=== PATIENT | male | born 1965 | race Caucasian/White ===

== ENCOUNTER 2024-08-01 20:54 | Observation (INO) | payer OTHER ==
--- NOTE | 2024-08-01 21:18 | ED ---
Recheck HPI - General Chief Complaint: Extremity Problem,Nontraumatic Stated Complaint: left leg pain Time Seen by Provider: 08/01/24 21:11 Source: patient, RN notes reviewed, old records reviewed Mode of arrival: EMS Limitations: no limitations - History of Present Illness Initial Comments: This is a 59-year-old male who is excepted in transfer from outside facility for new onset DVT. Patient will be admitted for anticoagulation once patient is transferred for anticoagulation and treatment of DVT. He has no chest pain or shortness of breath MD Complaint: other (DVT needing heparin) -: days(s) Returns Today for: persistent/worsening pain related to initial visit Symptoms Since Prior Visit: worsening pain Context: called for abnormal lab result - Related Data Previous Rx's Medication Instructions Recorded Apixaban [Eliquis Starter Pack 5 - 10 mg PO DIRECTED 30 Days 08/02/24 (for VTE)] #1 each Allergies Allergy/AdvReac Type Severity Reaction Status Date / Time No Known Allergies Allergy Verified 08/02/24 08:40 Review of Systems ROS Statement: Those systems with pertinent positive or pertinent negative responses have been documented in the HPI. ROS Other: All systems not noted in ROS Statement are negative. Past Medical History History of Any Multi-Drug Resistant Organisms: None Reported Additional Past Surgical History / Comment(s): wisdanica teamandeep Past Psychological History: No Psychological Hx Reported Smoking Status: Current every day smoker Past Alcohol Use History: Daily, Heavy Past Drug Use History: Marijuana General Exam Limitations: no limitations General appearance: alert, in no apparent distress Head exam: Present: atraumatic, normocephalic, normal inspection Eye exam: Present: normal appearance, PERRL, EOMI. Absent: scleral icterus, conjunctival injection, periorbital swelling ENT exam: Present: normal exam, mucous membranes moist Neck exam: Present: normal inspection. Absent: tenderness, meningismus, lymphadenopathy Respiratory exam: Present: normal lung sounds bilaterally. Absent: respiratory distress, wheezes, rales, rhonchi, stridor Cardiovascular Exam: Present: regular rate, normal rhythm, normal heart sounds. Absent: systolic murmur, diastolic murmur, rubs, gallop, clicks GI/Abdominal exam: Present: soft, normal bowel sounds. Absent: distended, tenderness, guarding, rebound, rigid Extremities exam: Present: normal inspection, tenderness, normal capillary refill, pedal edema, joint swelling, other (Lower extremity with redness pain swelling). Absent: calf tenderness Back exam: Present: normal inspection Neurological exam: Present: alert, oriented X3, CN II-XII intact Psychiatric exam: Present: normal affect, normal mood Skin exam: Present: warm, dry, intact, normal color. Absent: rash Course Vital Signs 08/01/24 08/01/24 20:58 23:19 Temperature 98 F 98.2 F Pulse Rate 79 74 Respiratory 17 17 Rate Blood Pressure 120/80 132/77 O2 Sat by Pulse 99 97 Oximetry - Reevaluation(s) Reevaluation #1: 08/01/24 22:35 medical record is reviewed Since transfer paperwork is reviewed normal lab testing, positive EtOH, ultrasound positive for DVT left lower extremity, CTA negative for PE Reevaluation #2: 08/01/24 22:36 Patient symptoms relatively unchanged still with leg pain Reevaluation #3: 08/01/24 22:36 Patient informed of results questions answered Reevaluation #4: Was pt. sent in by a medical professional or institution (, PA, CERTIFIED VEHICLE FIRE INVESTIGATOR, urgent care, hospital, or care home...) When possible be specific @ -no Did you speak to anyone other than the patient for history (EMS, parent, family, police, friend...)? What history was obtained from this source @ -no Did you review nursing and triage notes (agree or disagree)? Why? @ -agree Are old charts reviewed (outside hosp., previous admission, EMS record, old EKG, old radiological studies, urgent care reports/EKG's, care home records)? Report findings @ -yes Differential Diagnosis (chest pain, altered mental status, abdominal pain women, abdominal pain men, vaginal bleeding, weakness, fever, dyspnea, syncope, heada el, dizziness, GI bleed, back pain, seizure, CVA, palpatations, mental health, musculoskeletal)? @ -prior EKG interpreted by me (3pts min.). @ -no X-rays interpreted by me (1pt min.). @ -no CT interpreted by me (1pt min.). @ -no U/S interpreted by me (1pt. min.). @ -no What testing was considered but not performed or refused? (CT, X-rays, U/S, labs)? Why? @ -none What meds were considered but not given or refused? Why? @ -none Did you discuss the management of the patient with other professionals (professionals i.e. , PA, CERTIFIED VEHICLE FIRE INVESTIGATOR, lab, RT, psych nurse, director social welfare, dye range feeder, teacher, education officer, complex case manager)? Give summary @ -no Was smoking cessation discussed for >3mins.? @ -no Was critical care preformed (if so, how long)? @ -no Were there social determinants of health that impacted care today? How? (Homelessness, low income, unemployed, alcoholism, drug addiction, transp ortation, low edu. Level, literacy, decrease access to med. care, retirement, rehab)? @ -none Was there de-escalation of care discussed even if they declined (Discuss DNR or withdrawal of care, Hospice)? DNR status @ -no What co-morbidities impacted this encounter? (DM, HTN, Smoking, COPD, CAD, Cancer, CVA, ARF, Chemo, Hep., AIDS, mental health diagnosis, sleep apnea, morbid obesity)? @ -none Was patient admitted / discharged? Hospital course, mention meds given and route, prescriptions, significant lab abnormalities, going to OR and other pertinent info. @ - 59 male to the ER for evaluation, patient accepted in transfer from outside facility for DVT new left lower extremity edema swelling and pain especially when walking. Patient transferred here for DVT treatment . Admitted Undiagnosed new problem with uncertain prognosis? @ -no Drug Therapy requiring intensive monitoring for toxicity (Heparin, Nitro, Insulin, Cardizem)? @ -no Were any procedures done? @ -no Diagnosis/symptom? @ -Acute DVT Acute, or Chronic, or Acute on Chronic? @ -Acute Uncomplicated (without systemic symptoms) or Complicated (systemic symptoms)? @ -Complicated Side effects of treatment? @ -no Exacerbation, Progression, or Severe Exacerbation? @ -exacerbation Poses a threat to life or bodily function? How? (Chest pain, USA, IA, pneumonia, PE, COPD, DKA, ARF, appy, cholecystitis, CVA, Diverticulitis, Homicidal, Suicidal, threat to staff... and all critical care pts) @ -yes acute DVT PE - Consultations Consultation #1: Spoke with [facility] who agrees to admit this patient Medical Decision Making - Medical Decision Making 59 male to the ER for evaluation, patient accepted in transfer from outside facility for DVT new left lower extremity edema swelling and pain especially when walking. Patient transferred here for DVT treatment - Lab Data Result diagrams: 08/02/24 04:48 08/02/24 04:48 - Radiology Data Radiology results: report reviewed (UltraSound left lower extremity positive DVT, CT angio chest negative PE) Disposition Clinical Impression: Deep vein thrombosis (DVT) of lower extremity, Left leg DVT, Superficial thrombophlebitis of both legs Disposition: ADMITTED IP TO THIS HOSP Condition: Good Is patient prescribed a controlled substance at d/c from ED?: No Time of Disposition: 22:30
[2024-08-01] MEDS ORDERED: HEPARIN SODIUM 1,000 UN/ML (10ML VL) IV PRN (22:10)
[2024-08-01] MEDS: HEPARIN SOD,PORK IN 0.45% NACL 25,000 UNIT in 0.45% NACL 1 250ML.BAG IV SCH (22:21)
[2024-08-01] MEDS ORDERED: MORPHINE SULFATE 4 MG/ML SYRINGE IV PRN (22:32)
[2024-08-01] MEDS ORDERED: ONDANSETRON 4 MG/2 ML VIAL IVP PRN (22:32)
[2024-08-01] MEDS ORDERED: NALOXONE 0.4 MG/ML 1 ML VIAL IV PRN (22:32)
[2024-08-02 04:59] LABS: Basophils # (A) 0.1 k/uL (0-0.2); Basophils % (A) 1 %; Eosinophils # (A) 0.2 k/uL (0-0.7); Eosinophils % (A) 3 %; HCT 44.7 % (39.0-53.0); HGB 14.1 gm/dL (13.0-17.5); Lymphocytes % (A) 30 %; MCH 30.6 pg (25.0-35.0); MCHC 31.6 g/dL (31.0-37.0); Mean Platelet Volume 7.6; Monocytes # (A) 0.6 k/uL (0-1.0); Monocytes % (A) 9 %; Neutrophils # (A) 3.8 k/uL (1.3-7.7); Neutrophils % (A) 55 %; Platelet Count 246 k/uL (150-450); RBC 4.61 m/uL (4.30-5.90); RDW 13.5 % (11.5-15.5); WBC 6.9 k/uL (3.8-10.6)
[2024-08-02 06:52] LABS: ALT 13 U/L (4-49); AST 26 U/L (17-59); African American GFR (CKD) >90 (>60 ml/min/1.73 sqM); Albumin 3.5 g/dL (3.5-5.0); Alkaline Phosphatase 62 U/L (38-126); Anion Gap 9 mmol/L; Blood Urea Nitrogen 8 mg/dL (9-20); Calcium 8.5 mg/dL (8.4-10.2); Carbon Dioxide 25 mmol/L (22-30); Chloride 101 mmol/L (98-107); Glucose 98 mg/dL (74-99); Non-African American GFR(CKD) >90 (>60 ml/min/1.73 sqM); Phosphorus 3.8 mg/dL (2.5-4.5); Potassium 4.1 mmol/L (3.5-5.1); Sodium 135 mmol/L (137-145); Total Bilirubin 0.9 mg/dL (0.2-1.3)
[2024-08-02 08:00] VITALS: RESP 18
[2024-08-02] MEDS: SODIUM CHLORIDE 0.9% 1,000 ML IV SCH (09:04)
[2024-08-02] MEDS ORDERED: Apixaban Initiation Dose--VTE 5 MG TAB PO SCH (11:00)
[2024-08-02] MEDS: FAMOTIDINE 20 MG TAB PO SCH (11:43)
--- NOTE | 2024-08-02 14:05 | P.GSCN ---
History of Present Illness Consult date: 08/02/24 Reason for Consult: DVT Requesting physician: Terrance Rodríguez History of present illness: This a pleasant 59-year-old male who was transferred here from outside facility for concerns of left lower extremity DVT. Patient states he started noticing swelling at least 2 months ago of the left lower extremity however he had been off work since before the holidays and just went back to work on Wednesday. 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 He states he had looked online and schedule an appointment with the vein center and [place]. He was seen there yesterday by Dr. Ace Dunn for an ultrasound of the lower extremities with diagnosis of bilateral leg pain. Report states evidence of DVT of the left lower extremity with left common femoral, femoral popliteal and posterior tibial veins not being compressible and thrombus formation noted. Evidence of superficial vein thrombosis of bilateral lower extremities. Patient had then gone to a [facility] on [address] where he was evaluated and recommendation was for transfer to hospital for further evaluation. Patient chose to come to [facility]. Vascular surgery was consulted secondary to DVT. Patient denies any injury to his left leg, no recent surgery, travel and does state secondary to him being off of work and being winter he has been more sedentary. Patient denies tobacco use but is a marijuana smoker. Denies any previous history of known blood clots or family history of clotting disorder. He states left lower extremity swelling has improved. Denies any swelling up in his thigh. No pain at this time. He denies any shortness of breath or chest pain. He has full range of motion. Patient is currently on IV heparin drip. Review of Systems A 14 point review systems was completed all pertinent positives and negatives as stated in the HPI. Past Medical History Past Medical History: No Reported History History of Any Multi-Drug Resistant Organisms: None Reported Additional Past Surgical History / Comment(s): zackary durham Past Anesthesia/Blood Transfusion Reactions: No Reported Reaction Past Psychological History: No Psychological Hx Reported Smoking Status: Current every day smoker Past Alcohol Use History: Daily, Heavy Additional Past Alcohol Use History / Comment(s): 8 beers a day. states he has never smoked cigarettes, just marijuana Past Drug Use History: Marijuana Medications and Allergies Home Medications Medication Instructions Recorded Confirmed Type No Known Home Medications 08/02/24 08/02/24 History Allergies Allergy/AdvReac Type Severity Reaction Status Date / Time No Known Allergies Allergy Verified 08/02/24 08:40 Surgical - Exam Vital Signs Temp Pulse Resp BP Pulse Ox 98 F 79 17 120/80 99 08/01/24 20:58 08/01/24 20:58 08/01/24 20:58 08/01/24 20:58 08/01/24 20:58 General appearance: The patient is alert, oriented, appears in no acute distress. HET: Head is normocephalic and atraumatic. Pupils are equal and reactive. Neck: Supple. Heart: Regular. Lungs: Equal expansion, normal respiratory effort. Abdomen: Soft, nontender, nondistended. Extremities: Normal skin color and turgor. Left lower extremity +2 pitting edema from the knee down through the foot. Palpable DP pulse. Neurological: No focal deficits. Strength and sensation are grossly intact. Results - Labs 08/02/24 04:48 08/02/24 04:48 Abnormal Lab Results - Last 24 Hours (Table) 08/02/24 08/02/24 Range/Units 04:48 04:48 APTT 65.4 H (22.0-30.0) sec Sodium 135 L (137-145) mmol/L BUN 8 L (9-20) mg/dL Total Protein 6.0 L (6.3-8.2) g/dL Diabetes panel 08/02/24 Range/Units 04:48 Sodium 135 L (137-145) mmol/L Potassium 4.1 (3.5-5.1) mmol/L Chloride 101 (98-107) mmol/L Carbon Dioxide 25 (22-30) mmol/L BUN 8 L (9-20) mg/dL Creatinine 0.68 (0.66-1.25) mg/dL Glucose 98 (74-99) mg/dL Calcium 8.5 (8.4-10.2) mg/dL AST 26 (17-59) U/L ALT 13 (4-49) U/L Alkaline Phosphatase 62 (38-126) U/L Total Protein 6.0 L (6.3-8.2) g/dL Albumin 3.5 (3.5-5.0) g/dL Calcium panel 08/02/24 Range/Units 04:48 Calcium 8.5 (8.4-10.2) mg/dL Phosphorus 3.8 (2.5-4.5) mg/dL Albumin 3.5 (3.5-5.0) g/dL Pituitary panel 08/02/24 Range/Units 04:48 Sodium 135 L (137-145) mmol/L Potassium 4.1 (3.5-5.1) mmol/L Chloride 101 (98-107) mmol/L Carbon Dioxide 25 (22-30) mmol/L BUN 8 L (9-20) mg/dL Creatinine 0.68 (0.66-1.25) mg/dL Glucose 98 (74-99) mg/dL Calcium 8.5 (8.4-10.2) mg/dL Adrenal panel 08/02/24 Range/Units 04:48 Sodium 135 L (137-145) mmol/L Potassium 4.1 (3.5-5.1) mmol/L Chloride 101 (98-107) mmol/L Carbon Dioxide 25 (22-30) mmol/L BUN 8 L (9-20) mg/dL Creatinine 0.68 (0.66-1.25) mg/dL Glucose 98 (74-99) mg/dL Calcium 8.5 (8.4-10.2) mg/dL Total Bilirubin 0.9 (0.2-1.3) mg/dL AST 26 (17-59) U/L ALT 13 (4-49) U/L Alkaline Phosphatase 62 (38-126) U/L Total Protein 6.0 L (6.3-8.2) g/dL Albumin 3.5 (3.5-5.0) g/dL Assessment and Plan Assessment: 1. Left lower extremity extensive DVT Plan: 1. Apply GIOVANA hose to left lower extremity 2. Elevate lower extremities 3. May transition to oral anticoagulation of your choice 4. Patient is cleared from vascular surgery for discharge. Follow-up outpatient in 1 to 2 weeks. Thank you for this consultation. The impression and plan of care has been dictated as directed. Dr. Jian Gonsalves I performed a history and examination of this patient, discussed the same with the dictator. I agree with the dictator's note ,documented as a scribe. Any additional findings or plans will be noted.
[2024-08-02 14:18] VITALS: BP 133/75; PULSE 73; TEMP 98.3
--- NOTE | 2024-08-02 14:36 | P.HPIM ---
History of Present Illness H&P Date: 08/02/24 This is a 59-year-old male medical history significant for marijuana use and chronic alcoholism drinks 6-8 beers per day per the patient he has no other significant medical history does not follow with a family doctor. He just got his health insurance reinstated states that he has been off work for the last 3 to 4 months. He does factory like work. He does state that in April he got a bad upper respiratory infection and notices swelling in his left leg shortly after. He has had this left leg swelling for the last 3 to 4 months. Patient went to an outpatient vein clinic in [place] with Dr. Ace Dunn where he had bilateral Dopplers completed which reveals an acute DVT of left lower EXTR with left common femoral femoral popliteal and posterior tibial veins not being compressible and thrombus for patient noted. Evidence of superficial vein thrombosis of bilateral lower use. Patient states that the vein clinic told him to follow-up at the hospital. Patient presented to [facility] at [address] and they recommended transfer to a larger hospital system and patient states that he wanted to come to [facility] as it is close to his family. Patient has not had any recent travel and no noted history of DVTs in the past. Patient has significant lower extremity edema of the left leg does state that it has significantly improved since he was started on IV heparin yesterday evening. He is not reporting any shortness of breath or chest pain he is saturating 95% on r oom air oxygen. He was admitted to the hospital for the acute DVT we did ask vascular surgery to consult on this patient. Remains on IV heparin. REVIEW OF SYSTEMS: CONSTITUTIONAL: No fever, no malaise, no fatigue. HEENT: No recent visual problems or hearing problems. Denied any sore throat. CARDIOVASCULAR: No chest pain, orthopnea, PND, no palpitations, no syncope. PULMONARY: No shortness of breath, no cough, no hemoptysis. GASTROINTESTINAL: No diarrhea, no nausea, no vomiting, no abdominal pain. NEUROLOGICAL: No headaches, no weakness, no numbness. HEMATOLOGICAL: Denies any bleeding or petechiae. GENITOURINARY: Denies any burning micturition, frequency, or urgency. MUSCULOSKELETAL/RHEUMATOLOGICAL: Reports left lower extremity leg swelling and pain ENDOCRINE: Denies any polyuria or polydipsia. The rest of the 14-point review of systems is negative. PHYSICAL EXAMINATION: GENERAL: The patient is alert and oriented x3, not in any acute distress. Well developed, well nourished. HEENT: Pupils are round and equally reacting to light. EOMI. No scleral icterus. No conjunctival pallor. Normocephalic, atraumatic. No pharyngeal erythema. No thyromegaly. CARDIOVASCULAR: S1 and S2 present. No murmurs, rubs, or gallops. PULMONARY: Chest is clear to auscultation, no wheezing or crackles. ABDOMEN: Soft, nontender, nondistended, normoactive bowel sounds. No palpable organomegaly. MUSCULOSKELETAL: No joint swelling or deformity. EXTREMITIES: No cyanosis, clubbing, +2-3 pitting edema LLE NEUROLOGICAL: Gross neurological examination did not reveal any focal deficits. SKIN: No rashes. Assessment and Plan Acute DVT left lower extremity and bilateral superficial DVT Respiratory illness in April Chronic alcoholism Marijuana use Obesity GI prophylaxis DVT prophylaxis IV heparin Full Code Plan Continue IV heparin Vascular surgery consult Recommend compression stockings and elevate the lower extremity while sitting If vascular surgery clears patient can be discharged home on oral anticoagulation Will ramires check eliquis The impression and plan of care has been dictated by Cristina Mireles Nurse Practitioner as directed. Dr. Anne MD I have performed a history and physical examination and medical decision making of this patient, discussed the same with the dictator, and agree with the dictators assessment and plan as written, documented as a scribe. Based on total visit time, I have performed more than 50% of this visit. Past Medical History Past Medical History: No Reported History History of Any Multi-Drug Resistant Organisms: None Reported Additional Past Surgical History / Comment(s): wisdom teath Past Anesthesia/Blood Transfusion Reactions: No Reported Reaction Past Psychological History: No Psychological Hx Reported Smoking Status: Current every day smoker Past Alcohol Use History: Daily, Heavy Additional Past Alcohol Use History / Comment(s): 8 beers a day. states he has never smoked cigarettes, just marijuana Past Drug Use History: Marijuana Medications and Allergies Home Medications Medication Instructions Recorded Confirmed Type No Known Home Medications 08/02/24 08/02/24 History Allergies Allergy/AdvReac Type Severity Reaction Status Date / Time No Known Allergies Allergy Verified 08/02/24 08:40 Physical Exam Vitals: Vital Signs Temp Pulse Pulse Resp BP BP Pulse Ox 08/02/24 07:10 97.5 F L 60 18 116/70 99 08/02/24 02:00 98.0 F 89 17 124/69 98 08/02/24 00:00 98.1 F 72 17 134/77 97 08/01/24 23:19 98.2 F 74 17 132/77 97 08/01/24 20:58 98 F 79 17 120/80 99 Intake and Output 08/01/24 08/02/24 08/02/24 22:59 06:59 14:59 Intake Total 137.087 236 Output Total 550 Balance -412.913 236 Intake: Intake, IV Titration 137.087 Amount Heparin Sod,Pork in 0.45% 137.087 NaCl 25,000 unit In 0.45 % NaCl 1 250ml.bag @ 18 UNITS/KG/HR 18.779 mls/hr IV .[id number] [facility] Rx#: [id number] Oral 236 Output: Urine 550 Other: # Voids 2 Weight 104.326 kg 104.326 kg Results CBC & Chem 7: 08/02/24 04:48 08/02/24 04:48 Labs: Abnormal Lab Results - Last 24 Hours (Table) 08/02/24 08/02/24 Range/Units 04:48 04:48 APTT 65.4 H (22.0-30.0) sec Sodium 135 L (137-145) mmol/L BUN 8 L (9-20) mg/dL Total Protein 6.0 L (6.3-8.2) g/dL Thrombosis Risk Factor Assmnt - Choose All That Apply Any of the Below Risk Factors Present?: Yes Each Factor Represents 1 point: Age 41-60 years, Obesity (BMI >25), Swollen legs (current) Other Risk Factors: Yes Other congenital or acquired thrombophilia - If yes, enter type in comment: Yes Thrombosis Risk Factor Assessment Total Risk Factor Score: 3 Thrombosis Risk Factor Assessment Level: Moderate Risk Assessment and Plan Time with Patient: Greater than 30
--- NOTE | 2024-08-03 22:37 | P.DS ---
Providers Date of admission: 08/01/24 22:32 Attending physician: Tray Crawford Consults: 08/02/24 13:00 Consult Physician Urgent Consulting Provider: Jose Padron Consult Reason/Comments: dvt Do you want consulting provider notified?: Yes Primary care physician: Stated None Hospital Course: Final Diagnosis Acute DVT left lower extremity and bilateral superficial DVT Respiratory illness in April Chronic alcoholism Marijuana use Obesity Discharge Disposition Stable for discharge home. He has been started on eliquis for the acute DVT. Patient given a one month supply. He needs to see vascular in the office in 1 week. He needs to establish with a PCP on discharge. Hospital Course This is a 59-year-old male medical history significant for marijuana use and chronic alcoholism drinks 6-8 beers per day per the patient he has no other significant medical history does not follow with a family doctor. He just got his health insurance reinstated states that he has been off work for the last 3 to 4 months. He does factory like work. He does state that in April he got a bad upper respiratory infection and notices swelling in his left leg shortly after. He has had this left leg swelling for the last 3 to 4 months. Patient went to an outpatient vein clinic in [place] with Dr. Ace Dunn where he had bilateral Dopplers completed which reveals an acute DVT of left lower EXTR with left common femoral femoral popliteal and posterior tibial veins not being compressible and thrombus for patient noted. Evidence of superficial vein thrombosis of bilateral lower use. Patient states that the vein clinic told him to follow-up at the hospital. Patient presented to [facility] at [address] and they recommended transfer to a larger hospital system and patient states that he wanted to come to [facility] as it is close to his family. Patient has not had any recent travel and no noted history of DVTs in the past. Patient has significant lower extremity edema of the left leg does state that it has significantly improved since he was started on IV heparin yesterday evening. He is not reporting any shortness of breath or chest pain he is saturating 95% on room air oxygen. He was admitted to the hospital for the acute DVT and vascular surgery consultation. Vascular recommending GIOVANA [place] bilaterally. Patient has been transitioned to oral anticoagulation. Patient to follow up with vascular surgery in the office in 1 to 2 weeks. His leg swelling is markedly improved since admission. Please see medication reconciliation for a list of current medications. Thank you for allowing us to participate in the care of this patient. The impression and plan of care has been dictated by Cristina Mireles, Nurse Practitioner as directed. Dr. Anne MD I have performed a history and physical examination and medical decision making of this patient, discussed the same with the dictator, and agree with the dictators assessment and plan as written, documented as a scribe. Based on total visit time, I have performed more than 50% of this visit. Patient Condition at Discharge: Good Plan - Discharge Summary New Discharge Prescriptions: New Apixaban [Eliquis Starter Pack (for VTE)] 5 - 10 mg PO DIRECTED 30 Days #1 each Discharge Medication List Apixaban [Eliquis Starter Pack (for VTE)] 5 - 10 mg PO DIRECTED 30 Days #1 each 08/02/24 [Rx] Follow up Appointment(s)/Referral(s): Jennifer Zafar, [STAFF PHYSICIAN] - 1 Week None,Stated [Primary Care Provider] - 1-2 days Activity/Diet/Wound Care/Special Instructions: Need to continue wearing compression stockings, especially to the left leg Keep your leg elevated while sitting Follow up with vascular surgery Discharge/Stand Alone Forms: [facility] Area PCPs Discharge Disposition: HOME SELF-CARE
== END 2024-08-02 17:18 | disposition home or self-care (01) ==
LOC: EC 20:54 → 6NMEDSUR 22:32
PROVIDERS: ADMIT Hospitalist; ATTEND Hospitalist
DX: I82.442 Acute embolism and thrombosis of left tibial vein (principal); I82.412 Acute embolism and thrombosis of left femoral vein; I82.432 Acute embolism and thrombosis of left popliteal vein; I82.813 Embolism and thrombosis of superficial veins of lower extremities, bilateral; F10.20 Alcohol dependence, uncomplicated; F12.90 Cannabis use, unspecified, uncomplicated; E66.9 Obesity, unspecified; Z68.31 Body mass index [BMI] 31.0-31.9, adult
CPT/HCPCS: 96366 ×2; 96365; 99285; 80053; 84100; 85025; 85730; G0378 ×2; J1644 ×2